=== PATIENT | male | born 1945 | race Caucasian/White ===

== ENCOUNTER 2021-11-04 07:33 | Day surgery (SDC) | payer MEDICARE, OTHER ==
[~2021-11-04] VITALS: Ht 175.3 cm; Wt 97.1 kg
[~2021-11-04 07:33] MED LIST: ASPIRIN 81 LOW81 MG PO; FISH OIL1000 MG PO; JARDIANCE25 MG PO; LISINOPRIL10 MG PO; METFORMIN HCL1000 MG PO; METOPROL TAR25 MG PO; NORVASC5 M1 PO; OMEPRAZOLE20 MG PO; OZEMPIC2 MG/1.5 M SC; PRAVASTATIN20 MG PO; SENNA-TABS8.6 MG PO; TRAZODONE50 MG PO; VITAMIN B-12500 MCG PO
[2021-11-04 10:36] VITALS: BP 133/67
== END 2021-11-04 11:00 | disposition home or self-care (01) ==
LOC: ENDO 07:33 → ORM 10:00 → ENDO 11:00 → ORM 11:30
PROVIDERS: ATTEND Internal Medicine Gastroenterology
PROC: 0DJD8ZZ Inspection of Lower Intestinal Tract, Via Natural or Artificial Opening Endoscopic (ICD-10-PCS; principal; 2021-11-04)
DX: Z12.11 Encounter for screening for malignant neoplasm of colon (principal); K57.30 Diverticulosis of large intestine without perforation or abscess without bleeding; K64.8 Other hemorrhoids; Z86.010 Personal history of colon polyps; Z87.19 Personal history of other diseases of the digestive system